=== PATIENT | female | born 1970 | race Two or more races ===

== ENCOUNTER → 2022-06-15 07:17 | Outpatient (CLI) | payer OTHER | END | disposition home or self-care (01) | LOC: NUCLEAR 07:00 | PROVIDERS: ATTEND Orthopaedic Surgery | DX: D34 Benign neoplasm of thyroid gland (principal) | CPT/HCPCS: 78072; A9500 ==

== ENCOUNTER 2022-08-05 10:29 | Outpatient (CLI) | payer OTHER | END 2022-08-05 10:30 | disposition home or self-care (01) | LOC: LAB 10:29 | PROVIDERS: ATTEND Orthopaedic Surgery | DX: I49.9 Cardiac arrhythmia, unspecified (principal); I10 Essential (primary) hypertension; D64.89 Other specified anemias; E88.9 Metabolic disorder, unspecified; D68.8 Other specified coagulation defects; N39.0 Urinary tract infection, site not specified; A49.02 Methicillin resistant Staphylococcus aureus infection, unspecified site; Z76.89 Persons encountering health services in other specified circumstances ==

== ENCOUNTER 2022-12-28 10:23 | Outpatient (CLI) | payer OTHER | END 2022-12-28 10:29 | disposition home or self-care (01) | LOC: RAD 10:23 | PROVIDERS: ATTEND Orthopaedic Surgery | DX: M25.552 Pain in left hip (principal); M25.512 Pain in left shoulder ==

== ENCOUNTER → 2023-02-08 | Outpatient (CLI) | payer OTHER | END | disposition home or self-care (01) | LOC: SONOGRAMA 10:53 | PROVIDERS: ATTEND Orthopaedic Surgery | DX: M25.552 Pain in left hip (principal) ==

== ENCOUNTER → 2024-09-17 07:29 | Outpatient (CLI) | payer OTHER ==
[2024-09-17 08:56] LABS: URINE APPEARANCE Clear; URINE BILIRRUBIN Negative (NEGATIVE); URINE BLOOD Negative; URINE COLOR Yellow; URINE GLUCOSE Negative (NEGATIVE); URINE KETONE Trace (NEGATIVE); URINE LEUKOCYTE Small; URINE NITRATE Negative; URINE PROTEIN 30 (NEGATIVE); URINE UROBILINOGEN 0.2 E.U./dl
[2024-09-17 08:57] LABS: URINE BACTERIA 1726.9 uL (0.0-1933); URINE EPITHELIAL CELLS 42.5 uL (0.0-38.8); URINE RBC 9.8 uL (0.0-20.8); URINE WBC 13.4 uL (0.0-23.2)
[2024-09-17 09:43] LABS: ALBUMIN 3.9 gm/dL (3.4-5.0); BILIRUBIN TOTAL 0.4 mg/dL (0.3-1.2); CREATININE SERUM 0.55 mg/dL (0.55-1.02); FREE TRIODOTIRONINE 2.98 pg/ml (2.18-3.98); GFR 115.62; GLOBULINA 2.8 G/DL (2.4-3.5); MAGNESIUM 2.1 mg/dL (1.8-2.4); PHOSPHOROUS 3.1 mg/dL (2.5-4.9); POTASSIUM 4.39 mEq/L (3.5-5.1); T4 FREE 0.95 NG/ML (0.76-1.46); TOTAL PROTEIN 6.7 gm/dL (6.4-8.2); TSH 0.45 uIU/mL (0.358-3.74)
[2024-09-17 10:55] LABS: VITAMIN D3 25 HYDROXY 33.55 ng/ml (30-120)
[2024-09-19 01:11] LABS: FOLLICLE STIMULATING HORMONE 96.4 mIU/mL (.); LEUTEINIZING HORMONE 52.5 mIU/mL (.)
== END | disposition home or self-care (01) ==
LOC: LAB 07:29
PROVIDERS: ATTEND Orthopaedic Surgery
DX: E55.9 Vitamin D deficiency, unspecified (principal); M85.9 Disorder of bone density and structure, unspecified; E56.1 Deficiency of vitamin K; E21.3 Hyperparathyroidism, unspecified; E88.89 Other specified metabolic disorders; M81.8 Other osteoporosis without current pathological fracture; D51.3 Other dietary vitamin B12 deficiency anemia; Z12.11 Encounter for screening for malignant neoplasm of colon

== ENCOUNTER → 2024-09-23 13:41 | Outpatient (CLI) | payer OTHER ==
[2024-09-23 14:21] LABS: ob NEGATIVE (NEGATIVE)
== END | disposition home or self-care (01) ==
LOC: LAB 13:41
PROVIDERS: ATTEND Obstetrics & Gynecology Obstetrics
DX: N39.0 Urinary tract infection, site not specified (principal); N95.1 Menopausal and female climacteric states; R97.0 Elevated carcinoembryonic antigen [CEA]; E55.9 Vitamin D deficiency, unspecified; D51.3 Other dietary vitamin B12 deficiency anemia; Z12.11 Encounter for screening for malignant neoplasm of colon